=== PATIENT | male | born 1940 | race Caucasian/White ===

== ENCOUNTER → 2022-06-04 | Outpatient (CLI) | payer OTHER, SELFPAY ==
--- NOTE | 2022-06-04 12:45 | FOR_PTH ---
PATIENT: KARTIK ROSA LOC: [facility] U#:[id number] AGE/SX: 82/M ROOM: RE06/04/[address]: Dr. Nestor Gonzalez MD : [id number] BED: DIS: 06/04/2022 SPEC #: [id number] RECD: 06/04/22 15:24 STATUS: PHAN VALARIE #: [id number] MANDY: 06/04/22 12:[address]: Nestor Gonzalez DEPT: SURGICAL PATHOLOGY RECD BY: Tianna Ring ENTERED: 06/07/22 08:54 SP TYPE: FORESKIN OTHR DR: GAURAV Tissues: Skin of foreskin, NOS Procedures: Surgery Specimen Level III HEADER OPERATION: Circumcision and dilation of meatal stenosis PRE-OP DIAGNOSIS: Phimosis TISSUE SUBMITTED: Foreskin MICROSCOPIC DIAGNOSIS Foreskin, circumcision: Consistent with balanitis. AM:lloyd 06/08/2022 MICROSCOPIC DESCRIPTION Slides are reviewed. GROSS DESCRIPTION Received in fixative is one container labeled with the patient's name and designated foreskin. The specimen consists of two glistening fragments of pink-yost mucosa that in aggregate measure 7 x 3 x 1.5 cm. No mass lesions are identified. Cokeman sections are submitted in two cassettes. / AM:lloyd 06/07/2022 TC:3 CPT: 85683
== END | disposition home or self-care (01) ==
PROVIDERS: Visit Provider Urology
DX: N47.1 Phimosis (principal)
CPT/HCPCS: 88304